=== PATIENT | male | born 1975 | race Caucasian/White ===

== ENCOUNTER 2020-10-28 14:34 | Inpatient (IN) | payer MEDICAID ==
[~2020-10-28] VITALS: Ht 165.1 cm; Wt 90.7 kg
[2020-10-28] MEDS ORDERED: HYDROMORPHONE 1 MG/1 ML DISP.SYRIN IV ONE (14:45)
[2020-10-28] MEDS ORDERED: ONDANSETRON 4 MG/2 ML VIAL IV ONE (14:45)
[2020-10-28] MEDS ORDERED: ONDANSETRON 4 MG/2 ML VIAL ONE (14:54)
[2020-10-28 14:55] LABS: HEMATOCRIT 40.7 % (36.7-47.1); MEAN CORPUSCULAR HEMOGLOBIN 28.2 uug (23.8-33.4); MEAN CORPUSCULAR VOLUME 84.2 fL (73.0-96.2); PLATELET COUNT (AUTO) 257 K/uL (152-348)
[2020-10-28] MEDS ORDERED: HYDROMORPHONE 1 MG/1 ML DISP.SYRIN ONE (14:55)
[2020-10-28] MEDS ORDERED: GABA-532 PO (15:02)
[2020-10-28] MEDS ORDERED: [UNRECOGNIZED DRUG - OTHER] PO (15:02)
[2020-10-28] MEDS ORDERED: CLOP75TA15 PO (15:02)
[2020-10-28] MEDS ORDERED: ATOR10TA PO (15:02)
[2020-10-28] MEDS ORDERED: BUTA1CAP46 PO (15:02)
[2020-10-28] MEDS ORDERED: ASPI81TA31 PO (15:02)
[2020-10-28] MEDS ORDERED: ATEN25TA PO (15:02)
[2020-10-28] MEDS ORDERED: TOPI200T PO (15:02)
[2020-10-28] MEDS ORDERED: SUMA50TA PO (15:02)
[2020-10-28] MEDS ORDERED: MECL-159 PO (15:02)
[2020-10-28] MEDS ORDERED: DIVA500T2 PO (15:02)
[2020-10-28] MEDS ORDERED: LISI2.5T2 PO (15:02)
--- NOTE | 2020-10-28 15:05 | NUR ---
PT IS IN ROOM #2A. DR ARREDONDO EVALUATEDED THE PT.
[2020-10-28 15:16] LABS: BILIRUBIN,DIRECT 0.1 mg/dL (0.0-0.2); BILIRUBIN,TOTAL 0.2 mg/dL (0.2-1.0); CREATININE 0.7 mg/dL (0.6-1.3); POTASSIUM 4.2 mmol/L (3.5-5.1); TOTAL PROTEIN, SERUM 7.6 g/dL (6.4-8.2)
[2020-10-28] MEDS ORDERED: MECLIZINE HCL 25 MG TABLET PO PRN ×2 (19:00→20:42)
[2020-10-28] MEDS ORDERED: Z GUARD REMEDY PASTE 57 GM TUBE TOP PRN (19:00)
[2020-10-28] MEDS ORDERED: ACETAMINOPHEN 325 MG TABLET PO PRN (19:00)
[2020-10-28] MEDS ORDERED: MAGNESIUM HYDROXIDE 30 ML LIQUID UDC PO PRN (19:00)
[2020-10-28] MEDS ORDERED: ONDANSETRON 4 MG/2 ML VIAL IV PRN (19:00)
--- NOTE | 2020-10-28 19:23 | NUR ---
Report recieved from TOAMSZ Stubbs. Pt. resting in bed, denies any changes in symptoms. No signs of distress. Will continue to monitor.
--- NOTE | 2020-10-28 20:01 | NUR ---
Dr. Solano is at bedside to assess pt.
--- NOTE | 2020-10-28 20:34 | NUR ---
Gave report to TOMASZ Verma. Pt. to be going to room 329A.
[2020-10-28 21:48] VITALS: BP 146/95
[2020-10-29 00:05] VITALS: BP 136/76
[2020-10-29 04:30] VITALS: BP 136/69
[2020-10-29 06:23] LABS: MEAN CORPUSCULAR HEMOGLOBIN 28.5 uug (23.8-33.4); MEAN CORPUSCULAR VOLUME 84.7 fL (73.0-96.2); PLATELET COUNT (AUTO) 249 K/uL (152-348)
[2020-10-29 06:46] LABS: CREATININE 0.8 mg/dL (0.6-1.3); MAGNESIUM 2.1 mg/dL (1.8-2.4); PHOSPHOROUS 4.5 mg/dL (2.5-4.9); POTASSIUM 4.8 mmol/L (3.5-5.1)
--- NOTE | 2020-10-29 06:51 | NUR ---
Safety and comfort measures maintained T/O shift. Good urine output. Afebrile. All meds given as ordered. All needs met.
--- NOTE | 2020-10-29 07:30 | NUR ---
Patient received in bed, alert and oriented x4. Patient has no c/o chest pain or other discomforts at this time. Patient SR on monitor with HR 81. Patient on RA with no SOB or difficulties breathing. No acute distress noted. Left FA IV is intact and patent with no redness or swelling at this time. Call light and personal belongings within easy reach. Will continue to monitor.
[2020-10-29] MEDS ORDERED: ATORVASTATIN 20 MG TABLET PO SCH (09:00)
[2020-10-29] MEDS: ASPIRIN 81 MG TAB.CHEW PO SCH (09:44)
[2020-10-29] MEDS: LISINOPRIL 5 MG TABLET PO SCH (09:47)
[2020-10-29] MEDS: GABAPENTIN 100 MG CAPSULE PO SCH ×2 (09:47→17:01)
[2020-10-29] MEDS: DIVALPROEX 500 MG TABLET.DR PO SCH ×2 (09:48→17:01)
[2020-10-29] MEDS: CLOPIDOGREL 75 MG TABLET PO SCH (09:48)
[2020-10-29] MEDS: ATENOLOL 25 MG TABLET PO SCH (09:49)
[2020-10-29] MEDS: ATORVASTATIN 20 MG TABLET PO SCH (09:54)
[2020-10-29] MEDS: MORPHINE SULFATE 2 MG/1 ML DISP.SYRIN IV PRN ×2 (09:54→21:52)
--- NOTE | 2020-10-29 10:20 | NUR ---
Patient complains of chest pain and morphine was administered as ordered. Patient states that it relieved his chest pain. No other discomforts reported at this time. No acute distress noted. Call light and personal belongings within easy reach. Will continue to monitor.
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
[2020-10-29 16:00] VITALS: BP 120/67
[2020-10-29 20:43] VITALS: BP 126/83
[2020-10-30 00:34] VITALS: BP 147/89
[2020-10-30 04:08] VITALS: BP 128/88
--- NOTE | 2020-10-30 05:40 | NUR ---
Pt slept throughout the night. No discomfort noted. Pt pleasant and able to make needs known. Consent signed for CTA chest and in chart. golf course superintendent at 10:30H. Safety and comfort provided. No other issues or concerns at this time, will endorse to day shift.
--- NOTE | 2020-10-30 07:30 | NUR ---
Patient received in bed, alert and oriented x4. Patient has no c/o chest pain or other discomforts at this time. Patient SR on monitor. Patient on RA with no SOB or difficulties breathing. No acute distress noted. Left FA IV is intact and patent with no redness or swelling at this time. Call light and personal belongings within easy reach. Will continue to monitor.
[2020-10-30] MEDS: MORPHINE SULFATE 2 MG/1 ML DISP.SYRIN IV PRN ×2 (08:40→14:07)
[2020-10-30] MEDS: ATORVASTATIN 20 MG TABLET PO SCH (08:41)
[2020-10-30] MEDS: LISINOPRIL 5 MG TABLET PO SCH (08:41)
[2020-10-30] MEDS: CLOPIDOGREL 75 MG TABLET PO SCH (08:41)
[2020-10-30] MEDS: DIVALPROEX 500 MG TABLET.DR PO SCH ×2 (08:41→17:13)
[2020-10-30] MEDS: ASPIRIN 81 MG TAB.CHEW PO SCH (08:41)
[2020-10-30] MEDS: ATENOLOL 25 MG TABLET PO SCH (08:42)
[2020-10-30] MEDS: GABAPENTIN 100 MG CAPSULE PO SCH ×2 (08:42→17:13)
--- NOTE | 2020-10-30 10:15 | NUR ---
Patient's IV was flushed to ensure patency for contrast. Patient states he has new pain at the IV site. Therefore, new IV started on the left AC 20G C/D/I. Patient is ready to be transported to [facility] for cardiac CTA. risk control officer Rusty Nagy aware. Will continue to monitor.
--- NOTE | 2020-10-30 10:58 | NUR ---
Patient picked up by ambulance in satisfactory condition for cardiac CTA at [facility].
--- NOTE | 2020-10-30 13:34 | NUR ---
Patient is back from [facility] via ambulance. Patient put back on monitor. Set up patient for lunch. No c/o pain or discomforts at this time. No acute distress noted. Will continue to monitor.
[2020-10-30 13:37] VITALS: BP 133/86
[2020-10-30 15:36] VITALS: BP 126/91
[2020-10-30] MEDS ORDERED: ATOR20TA PO (16:24)
--- NOTE | 2020-10-30 17:45 | NUR ---
Taken down via wheelchair with all his personal belongings. Expressed understanding of discharge orders. Patient discharged in satisfactory condition.
== END 2020-10-30 17:45 | disposition home or self-care (01) | DRG 203 ==
LOC: ER 14:35 → TELE3 20:39
PROVIDERS: ADMIT Nurse Practitioner Acute Care; ATTEND Nurse Practitioner Acute Care
DX: R07.89 Other chest pain (principal); I69.354 Hemiplegia and hemiparesis following cerebral infarction affecting left non-dominant side; E66.9 Obesity, unspecified; Z68.33 Body mass index [BMI] 33.0-33.9, adult; E78.5 Hyperlipidemia, unspecified; Z87.891 Personal history of nicotine dependence; F41.9 Anxiety disorder, unspecified; G40.909 Epilepsy, unspecified, not intractable, without status epilepticus; I10 Essential (primary) hypertension; Z87.820 Personal history of traumatic brain injury; Z71.3 Dietary counseling and surveillance
CPT/HCPCS: 36415; 70030-TC; 70450; 71045; 83735; 84100; 85025; 93005; 93307; A4663; G0378; J1170; J2270; J2405